=== PATIENT | female | born 1980 ===

== ENCOUNTER 2020-01-06 18:52 | Emergency (ER) | payer SELFPAY ==
[~2020-01-06] VITALS: Ht 160 cm; Wt 67.3 kg
[~2020-01-06 18:52] MED LIST: DOXYCYCLINE 10100 MG PO; FERROUS SULFATE65 MG; MOTRIN 600600 MG/TAB PO; NO HOME MEDICATIONS; PERCOCET 325 MG1 TA2 PO; PRENATAL PLUS I1 TAB PO; PRENATAL1 TA2
[2020-01-06 19:56] VITALS: BP 138/74; PULSE 74; TEMP 97.3
[2020-01-06 20:40] LABS: HIV 1/2 Antibodies Non-Reactive; HIV-1p24 Antigen Non-Reactive
[2020-01-07 16:14] LABS: HEPATITIS B SURFACE ANTIGEN Negative (Negative); HEPATITIS C VIRUS ANTIBODY Negative (Negative)
== END 2020-01-06 19:55 | disposition home or self-care (01) ==
LOC: COL.ER 18:52
PROVIDERS: Physician Assistant
DX: S61.032A Puncture wound without foreign body of left thumb without damage to nail, initial encounter (principal); Z23 Encounter for immunization; W46.1XXA Contact with contaminated hypodermic needle, initial encounter; Y99.0 Civilian activity done for income or pay

== ENCOUNTER 2020-11-08 08:54 | Emergency (ER) | payer BC ==
[~2020-11-08] VITALS: Ht 167.6 cm; Wt 65.9 kg
[2020-11-08 10:11] LABS: COLLECTION METHOD CLEAN CATCH
[2020-11-08 10:29] LABS: MUCOUS Present /lpf; PH 5 (5-8); URINE APPEARANCE Clear; URINE BACTERIA None Seen /hpf; URINE BILIRUBIN Negative (NEGATIVE); URINE BLOOD Negative (NEGATIVE); URINE COLOR Yellow; URINE GLUCOSE Negative (NEGATIVE); URINE KETONE Negative (NEGATIVE); URINE LEUKOCYTE ESTERASE Negative (NEGATIVE); URINE NITRATE Negative (NEGATIVE); URINE PROTEIN(semi-quant) Negative (NEGATIVE); URINE RBC 0-2 /hpf; URINE UROBILINOGEN Negative (NEGATIVE); URINE WBC 0-2 /hpf
[2020-11-08 12:25] VITALS: BP 111/66; PULSE 77; TEMP 98.1
== END 2020-11-08 12:25 | disposition home or self-care (01) ==
LOC: COL.ER 08:54
PROVIDERS: Student in an Organized Health Care Education/Training Program
DX: M54.6 Pain in thoracic spine (principal)